=== PATIENT | male | born 1970 | race Caucasian/White ===

== ENCOUNTER 2018-12-03 08:04 | Inpatient (IN) | payer OTHER ==
[2018-12-03] VITALS (56 sets, daily range): BP systolic 65–134; BP diastolic 41–82
[~2018-12-03] VITALS: Ht 177.8 cm; Wt 77.6 kg
[2018-12-03 08:48] LABS: HEMATOCRIT 44.6 % (42.0-52.0); HEMOGLOBIN 13.9 gm/dL (14.0-18.0); MCH 31.2 pg (26.0-34.0); MCHC 31.1 g/dL (28.0-37.0); MCV 100.4 fL (80.0-100.0); MPV 9.3 fl. (7.2-11.1); NUCLEATED RBCS 0 /100WBC; PLATELET COUNT* 114 thou/uL (150-400); RBC 4.45 mil/uL (4.50-6.00); RDW-CV 13.7 % (10.5-14.5); WBC 7.5 thou/uL (4.0-11.0)
[2018-12-03 08:58] LABS: ANION GAP 21 mmol/L (7-16); BUN 13 mg/dL (7-18); CALCIUM 8.7 mg/dL (8.5-10.1); CHLORIDE 102 mmol/L (98-107); CO2 19 mmol/L (21-32); CREATININE 1.4 mg/dL (0.6-1.3); GLUCOSE 461 mg/dL (70-99); INR 1.1; POTASSIUM 3.1 mmol/L (3.5-5.1); SODIUM 142 mmol/L (136-145)
[2018-12-03 09:08] LABS: ALBUMIN 2.7 g/dL (3.4-5.0); ALKALINE PHOSPHATASE 74 U/L (46-116); LIPASE 482 U/L (73-393); MAGNESIUM 2.8 mg/dL (1.8-2.4); NT-PRO BRAIN NAT PEPTIDE 237 pg/mL (<300); SGOT 147 U/L (15-37); SGPT 181 U/L (30-65); TOTAL PROTEIN 5.4 g/dL (6.4-8.2)
[2018-12-03 09:11] LABS: TOTAL BILIRUBIN < 0.1 mg/dL (<0.1-1.0)
[2018-12-03 09:15] LABS: ABSOLUTE EOSINOPHILS 0.2 thou/uL (0.0-0.7); ABSOLUTE LYMPHOCYTES 5.4 thou/uL (0.8-5.3); ABSOLUTE MONOCYTES 0.6 thou/uL (0.0-1.2); ABSOLUTE NEUTROPHILS 1.4 thou/uL (1.6-8.1); PLATELET ESTIMATE ADEQUATE
[2018-12-03 09:38] LABS: BE -20.6 mmol/L (-2 to +3)
[2018-12-03 09:40] LABS: PCO2 52.5 mmHg (35.0-45.0); PO2 49.6 mmHg (75.0-100.0); pH 6.957 (7.340-7.450)
[2018-12-03 10:37] LABS: BE -14.5 mmol/L (-2 to +3); PO2 70.7 mmHg (75.0-100.0)
[2018-12-03 10:40] LABS: PCO2 61.5 mmHg (35.0-45.0); pH 7.049 (7.340-7.450)
[2018-12-03 13:11] LABS: BE -7.4 mmol/L (-2 to +3); PCO2 48.2 mmHg (35.0-45.0)
[2018-12-03 13:14] LABS: PO2 125.2 mmHg (75.0-100.0); pH 7.239 (7.340-7.450)
[2018-12-03 14:28] LABS: HEMATOCRIT 45.9 % (42.0-52.0)
[2018-12-03 15:45] LABS: ABSOLUTE MONOCYTES 0.6 thou/uL (0.0-1.2); ABSOLUTE NEUTROPHILS 14.1 thou/uL (1.6-8.1); BASOPHILS 0.1 %; EOSINOPHILS 0.1 %; HEMATOCRIT 45.5 % (42.0-52.0); LYMPHOCYTES 6.2 %; MCH 30.9 pg (26.0-34.0); MCHC 32.9 g/dL (28.0-37.0); MONOCYTES 3.6 %; MPV 9.6 fl. (7.2-11.1); NUCLEATED RBCS 0 /100WBC; RBC 4.85 mil/uL (4.50-6.00); WBC 15.7 thou/uL (4.0-11.0)
[2018-12-03 15:46] LABS: CK-MB MASS > 900.0 ng/mL (<0.5-3.6)
[2018-12-03 15:47] LABS: PLATELET COUNT* 260 thou/uL (150-400)
[2018-12-03 15:50] LABS: TROPONIN-I LEVEL > 200.00 ng/mL (<0.06)
[2018-12-03 15:58] LABS: ANION GAP 12 mmol/L (7-16); BUN 21 mg/dL (7-18); CALCIUM 7.3 mg/dL (8.5-10.1); CHLORIDE 110 mmol/L (98-107); CO2 25 mmol/L (21-32); CREATININE 1.8 mg/dL (0.6-1.3); GLUCOSE 129 mg/dL (70-99); POTASSIUM 3.3 mmol/L (3.5-5.1); SODIUM 147 mmol/L (136-145)
[2018-12-03 16:31] LABS: CK-MB MASS > 900.0 ng/mL (<0.5-3.6); MAGNESIUM 2.3 mg/dL (1.8-2.4); NT-PRO BRAIN NAT PEPTIDE 558 pg/mL (<300); PHOSPHORUS* 1.7 mg/dL (2.5-4.9)
[2018-12-03 16:39] LABS: INR 1.2; PROTIME 12.4 Seconds (9.20-11.50)
[2018-12-03 16:40] LABS: FIBRINOGEN 194 mg/dL (200-340)
--- NOTE | 2018-12-03 18:15 | EKG ---
[place] [address] ELECTROCARDIOGRAM REPORT Name: ZACH MORTON Room: [address] ADM IN .R.#: [id number] Admission: 12/03/18 Attend Phys: Jani Powers Discharge: Date of : 70 Report #: [id number] THIS REPORT FOR: //name// [facility] Test Date: 2018-12-03 Test Time: 11:01:27 Pat Name: ZACH MORTON Department: Room: [facility] Gender: M Supervisor [employer]: : 1970 Requested By: Juancarlos Alexandre Order Number: [id number] Andi MD: Juancarlos Alexandre Measurements Intervals [place] Rate: 101 P: 55 [place]: 119 QRS: 16 QRSD: 93 T: -54 QT: 391 QTc: 507 Interpretive Statements Sinus tachycardia Atrial premature complex Repol abnrm suggests ischemia, lateral leads Prolonged QT interval No previous ECG available for comparison Electronically Signed On 12-03-2018 18:14:46 CDT by Juancarlos Alexandre [email or web address] <ELECTRONICALLY SIGNED> By: Juancarlos Alexandre MD, [facility] 12/03/18 1814 00 00 Juancarlos Alexandre MD, FACC /EPI
--- NOTE | 2018-12-03 18:22 | EKG ---
[place] [address] ELECTROCARDIOGRAM REPORT Name: ZACH MORTON Room: [address] ADM IN .R.#: [id number] Admission: 12/03/18 Attend Phys: Jani Powers Discharge: Date of : 70 Report #: [id number] THIS REPORT FOR: //name// [facility] ED Test Date: 2018-12-03 Test Time: 08:34:16 Pat Name: ZACH MORTON Department: Room: [facility] Gender: M Eyeglass Lens Grinder: : 1970 Requested By: Ari Soto Order Number: [id number] MD: Juancarlos Alexandre Measurements Intervals [place] Rate: 70 P: AR: QRS: 111 QRSD: 194 T: 105 QT: 534 QTc: 577 Interpretive Statements Wide complex rhythm Inferior ST elevation consistent with acute inferior wall infarct Nonspecific intraventricular conduction delay Abnormal lateral Q waves ST depr, consider ischemia, anterolateral lds No previous ECG available for comparison Electronically Signed On 12-03-2018 18:22:33 CDT by Juancarlos Alexandre [email or web address] <ELECTRONICALLY SIGNED> By: Juancarlos Alexandre MD, FACC 12/03/18 1822 0834 Juancarlos Alexandre MD, [facility] /EPI
[2018-12-03 18:34] LABS: BE -7.2 mmol/L (-2 to +3); PCO2 36.9 mmHg (35.0-45.0); PO2 88.1 mmHg (75.0-100.0); pH 7.312 (7.340-7.450)
[2018-12-03 22:44] LABS: URINE BILIRUBIN NEGATIVE (Negative); URINE BLOOD 3+ (Negative); URINE CLARITY CLOUDY; URINE COLOR BROWN; URINE GLUCOSE-RANDOM TRACE (Negative); URINE KETONES NEGATIVE (Negative); URINE LEUKOCYTES-REFLEX NEGATIVE (Negative); URINE NITRITE-REFLEX NEGATIVE (Negative); URINE PROTEIN 2+ (Negative); URINE SPECIFIC GRAVITY >= 1.030 (1.005-1.030); URINE UROBILINOGEN 0.2 E.U./dl (0.2-1.0)
[2018-12-03 22:57] LABS: URINE RBC >20 Many /HPF (0-2); URINE WBC-REFLEX None Seen /HPF (0-5)
[2018-12-03 22:58] LABS: CRYSTALS None Seen /LPF (None Seen); MUCUS None Seen strn/LPF (None Seen); SQUAMOUS NONE SEEN /LPF (0-3)
[2018-12-03 22:59] LABS: HYALINE CASTS 0-3 Few /LPF (None Seen)
[2018-12-03 23:00] LABS: BACTERIA-REFLEX None Seen /HPF (None Seen)
[2018-12-04] VITALS (44 sets, daily range): BP systolic 93–170; BP diastolic 53–84
[2018-12-04 00:38] LABS: HEMATOCRIT 40.7 % (42.0-52.0); HEMOGLOBIN 13.4 gm/dL (14.0-18.0); MCH 30.9 pg (26.0-34.0); MCHC 33.1 g/dL (28.0-37.0); MCV 93.3 fL (80.0-100.0); MPV 9.6 fl. (7.2-11.1); RBC 4.36 mil/uL (4.50-6.00); RDW-CV 13.2 % (10.5-14.5); WBC 21.7 thou/uL (4.0-11.0)
[2018-12-04 00:53] LABS: INR 1.1; PROTIME 10.9 Seconds (9.20-11.50)
[2018-12-04 00:56] LABS: APTT 25.2 Seconds (25.0-31.3)
[2018-12-04 01:05] LABS: MAGNESIUM 1.7 mg/dL (1.8-2.4); PHOSPHORUS* 4.1 mg/dL (2.5-4.9)
[2018-12-04 01:13] LABS: ALBUMIN 2.6 g/dL (3.4-5.0); ALKALINE PHOSPHATASE 60 U/L (46-116); ANION GAP 16 mmol/L (7-16); BUN 30 mg/dL (7-18); CHLORIDE 110 mmol/L (98-107); CHOLESTEROL 120 mg/dL (<200); CO2 18 mmol/L (21-32); CREATININE 2.6 mg/dL (0.6-1.3); GLUCOSE 120 mg/dL (70-99); HDL CHOLESTEROL 52 mg/dL (>40); LDL CHOLESTEROL 53 mg/dL (<100); SGOT 849 U/L (15-37); SGPT 346 U/L (30-65); SODIUM 144 mmol/L (136-145); TC:HDL 2.3 Ratio (Not establshd); TOTAL BILIRUBIN 0.6 mg/dL (<0.1-1.0); TOTAL PROTEIN 5.2 g/dL (6.4-8.2); TRIGLYCERIDE 77 mg/dL (<150); VLDL 15 mg/dL (<40)
[2018-12-04 01:17] LABS: POTASSIUM 4.3 mmol/L (3.5-5.1)
[2018-12-04 01:20] LABS: SERUM ASSESSMENT Clear
[2018-12-04 01:51] LABS: TROPONIN-I LEVEL > 200.00 ng/mL (<0.06)
[2018-12-04 04:06] LABS: BE -9.8 mmol/L (-2 to +3); PCO2 31.1 mmHg (35.0-45.0); PO2 89.7 mmHg (75.0-100.0); pH 7.307 (7.340-7.450)
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
[2018-12-04 08:28] LABS: ABSOLUTE LYMPHOCYTES 1.9 thou/uL (0.8-5.3); ABSOLUTE NEUTROPHILS 19.1 thou/uL (1.6-8.1); BASOPHILS 0.1 %; HEMATOCRIT 37.3 % (42.0-52.0); HEMOGLOBIN 12.3 gm/dL (14.0-18.0); LYMPHOCYTES 8.5 %; MCH 30.6 pg (26.0-34.0); MCHC 33.1 g/dL (28.0-37.0); MCV 92.6 fL (80.0-100.0); MONOCYTES 4.5 %; MPV 9.8 fl. (7.2-11.1); NUCLEATED RBCS 0 /100WBC; PLATELET COUNT* 193 thou/uL (150-400); POLYS 86.9 %; RBC 4.03 mil/uL (4.50-6.00); RDW-CV 12.8 % (10.5-14.5)
[2018-12-04 08:41] LABS: CALCIUM 7.4 mg/dL (8.5-10.1); CREATININE 3.3 mg/dL (0.6-1.3); MAGNESIUM 2.3 mg/dL (1.8-2.4); PHOSPHORUS* 5.1 mg/dL (2.5-4.9); POTASSIUM 4.7 mmol/L (3.5-5.1)
[2018-12-04 09:02] LABS: APTT 27.4 Seconds (25.0-31.3); PROTIME 10.6 Seconds (9.20-11.50)
[2018-12-04 09:08] LABS: CK-MB MASS > 900.0 ng/mL (<0.5-3.6)
[2018-12-04 09:09] LABS: TROPONIN-I LEVEL > 200.00 ng/mL (<0.06)
--- NOTE | 2018-12-04 11:03 | CON ---
[facility] [address] [place] [address] CONSULTATION Name: ZACH MORTON Room: [address] IN .R.#: [id number] Admission: 12/03/18 Attend Phys: Jani Powers Discharge: Date of : 70 Report #: [id number] THIS REPORT FOR: //name// CC: Michael Mcwilliams DATE OF SERVICE: 12/03/2018 INDICATION: Out of hospital arrest and acute inferior wall ST elevation myocardial infarction. HISTORY OF PRESENT ILLNESS: The patient is a 47-year-old gentleman with no prior documented cardiac issues. The patient apparently awoke from sleep at approximately 2:00 in the morning, at which time he complained of chest discomfort radiating to his arm and had some nausea. The patient went back to sleep. The patient was found to be unresponsive at approximately 7:15 in the morning. EMS was summoned. EMS intubated the patient on scene and treated with 4 rounds of epinephrine. ACLS protocol was undertaken at that time. The patient was brought to the Emergency Room and found to be in a ventricular arrhythmia. ACLS protocol followed and ultimately a pulse and a reasonable blood pressure attained. The patient was taken emergently to the cardiac catheterization lab. Catheterization revealed the left main, LAD and circumflex arteries to be relatively normal. The right coronary artery is totally occluded proximally. The patient underwent drug-eluting stent placement to this area with prompt filling of the distal right coronary artery. The patient continued to have ventricular arrhythmias during initial catheterization requiring 3 separate defibrillations. Post intervention, the patient was then transferred to the Intensive Care Unit where he remains on pressors and code ICE. He is sedated with propofol. PAST MEDICAL HISTORY: Suggests polysubstance abuse and tobacco use. No other past medical history noted. Diabetes mellitus. FAMILY HISTORY: Noncontributory. SOCIAL HISTORY: The patient lives with girlfriend. There is history of alcohol and methamphetamine use. Apparently, a history of diabetes. PHYSICAL EXAMINATION: VITAL SIGNS: Presently, blood pressure is 112/63, pulse is 90 and regular. GENERAL: Intubated, sedated, and on code ICE protocol. HEENT: Head is normocephalic, atraumatic. NECK: Without obvious jugular venous distention. CHEST: Coarse breath sounds bilaterally. CARDIAC: Regular rhythm without murmur. EXTREMITIES: Cool [place] [address] CONSULTATION Name: ZACH MORTON Room: [address]#: [id number] Admission: 12/03/18 Attend Phys: Jani Powers Discharge: Date of : 70 Report #: [id number] SKIN: Dry. LABORATORY DATA: Reviewed. Sodium 147, potassium 3.3, chloride 110, bicarbonate 25, BUN 21, creatinine 1.8, serum glucose 129. Initial troponin was 1.10 and subsequently greater than 200. NT-proBNP 558. White blood cell count 15.7, hemoglobin 15.0, platelet count 260,000. Chest x-ray shows extensive right lung infiltrates and perihilar infiltrates, possibly suggesting edema. Endotracheal and NG tube in good position. EKG on arrival showed acute ST elevation in the inferior leads with widened QRS complex. IMPRESSION AND RECOMMENDATIONS: 1. Acute inferior wall ST elevation myocardial infarction, status post drug-eluting stent placement. The patient is on an Aggrastat drip as there was concern that he would not be able to absorb antiplatelet therapy. We will continue Aggrastat drip overnight and consider transition to antiplatelet therapy per OG tube tomorrow. Continue supportive care at this time. 2. Out of hospital arrest and acute coronary syndrome. The patient was defibrillated multiple times and bolused with amiodarone in the field and in the hospital. At this time, his rhythm remains stable. We will follow. Should he develop further ventricular arrhythmias, may consider amiodarone drip. 3. Probable acute systolic heart failure. The patient is intubated. Saturations are stable. Blood pressure is stable. We will follow clinically at this point in time. I do not believe that he would tolerate diuresis. 4. Diabetes per hospitalist. At this point in time, the patient remains critically ill with guarded prognosis. The patient had a prolonged downtime in the field and in the Emergency Room. Neurology is following regarding the patient's neurologic status. <ELECTRONICALLY SIGNED> By: Juancarlos Alexandre MD, FACC 12/04/18 1103 1753 1856Juancarlos Alexandre MD, FACC /nt
[2018-12-04 17:28] LABS: BE -8.7 mmol/L (-2 to +3); PCO2 25.3 mmHg (35.0-45.0); pH 7.383 (7.340-7.450)
[2018-12-04 17:30] LABS: PO2 133.8 mmHg (75.0-100.0)
[2018-12-04 21:08] LABS: BE -6.1 mmol/L (-2 to +3); PCO2 VENOUS 32.6 mmHg (41.0-51.0); PO2 VENOUS 138.2 mmHg (35.0-45.0)
[2018-12-04 23:05] LABS: HEPATITIS B SURFACE AG Negative (Negative)
[2018-12-05] VITALS (34 sets, daily range): BP systolic 117–152; BP diastolic 69–89
[2018-12-05 04:56] LABS: HEMATOCRIT 27.4 % (42.0-52.0); MCH 31.6 pg (26.0-34.0); MCHC 34.5 g/dL (28.0-37.0); MCV 91.6 fL (80.0-100.0); WBC 15.6 thou/uL (4.0-11.0)
[2018-12-05 04:58] LABS: HEMOGLOBIN 9.5 gm/dL (14.0-18.0)
[2018-12-05 05:02] LABS: BE -6.3 mmol/L (-2 to +3); PCO2 25.4 mmHg (35.0-45.0); pH 7.433 (7.340-7.450)
[2018-12-05 05:04] LABS: PO2 131.7 mmHg (75.0-100.0)
[2018-12-05 05:17] LABS: ALBUMIN 2.1 g/dL (3.4-5.0); CALCIUM 7.1 mg/dL (8.5-10.1); CREATININE 5.2 mg/dL (0.6-1.3); MAGNESIUM 2.1 mg/dL (1.8-2.4); PHOSPHORUS* 4.5 mg/dL (2.5-4.9)
[2018-12-05 05:31] LABS: CK-MB MASS 397.6 ng/mL (<0.5-3.6)
[2018-12-05 06:24] LABS: TROPONIN-I LEVEL 131.95 ng/mL (<0.06)
[2018-12-05 07:41] LABS: CK-MB MASS > 900.0 ng/mL (<0.5-3.6)
[2018-12-05 08:02] LABS: HEMOGLOBIN 9.6 gm/dL (14.0-18.0)
--- NOTE | 2018-12-05 12:41 | CARD ---
[facility] [address] [place] [address] CARDIAC CATH REPORT Name: ZACH MORTON Room: 003-P ADM IN .R.#: [id number] Admission: 12/03/18 Attend Phys: Jani Powers Discharge: Date of : 70 Report #: [id number] THIS REPORT FOR: //name// APPROVED REPORT Study performed: 12/03/2018 08:30:41 Patient Details Patient Status: ED Room #: The patient is a 47 year-old male Event Personnel Gerry Verde Psychological Operations, Juancarlos Alexandre Yoke Presser, Alex León Scrub, Mel Hoff RTR Monitor, Zulay Avilez RN Protective Service Specialist, Mariaelena Elam Protective Service Specialist Procedures Performed Art Access - R femoral artery* Linwood Access - R femoral vein Coronary Angiography Only CORANG JOSIE Place w/wo Plasty Single RCA Indication STEMI Admission/Lab Medications/Medications given during procedure Platelet Aff. Inhib., Heparin Unfract., Aggrastat IV 8 mcg per min, Aggrastat IV 15 mcg per [place], [place] [address] units Procedure Narrative The patient was brought emergently to the Cardiac Catheterization Laboratory and was prepped and draped in a sterile manner. The right femoral was infiltrated with 1% Lidocaine subcutaneous anesthesia. A [place] 6 FR sheath was inserted into the right femoral artery. Coronary angiography was performed using coronary diagnostic catheters. The right coronary system was accessed and visualized with a JR4 6fr catheter. The left coronary system was accessed and visualized with a JL4 6fr catheter. The patient had a cardiac rhythm of ventricular fibrillation three times. The patient was shocked with 200J x 1. the subsequesnt shocks were 360J each. Patient was given Amiodarone 150mg bolus x 2 and 2 amps of Sodium Bicarbonate to stabilize the patient hemodynamically. The arterial and venous sheath were sutured in place. Intraoperative Conscious Sedation No [place] [address] CARDIAC CATH REPORT Name: ZACH MORTON Room: [address] IN [facility]#: [id number] Admission: 12/03/18 Attend Phys: Jani Powers Discharge: Date of : 70 Report #: [id number] Procedure start time 9:16, stop time 9:46. Fluoro Time: 7.5 minutes Dose: DAP 38965 cGycm2 647 mGy Contrast Type and Amount: Visipaque 140 ml Coronary Angiography The patient's coronary anatomy is right dominant. Diagnostic Cath Left Main Normal LAD Minimally plaqued proximally. The mid and distal vessel appeared normal. Diagonal 1 Justin branch with fairly proximal takeoff. The vessel appears normal. Circumflex Normal in the proximal mid and distal portion. OM1 Large with fairly proximal takeoff. The vessel is normal. OM2 Moderate size caliber branch vessel that is normal. Right Coronary Totally occluded proximally. Left Ventriculography Left Ventriculography was not performed. Hemodynamics NIBP PRE PROCEDURE 9:18AM 148/110. NIBP POST PROCEDURE 9:55 AM 184/79. PCI Technique Lesion Anticoagulation was achieved with Heparin. [place] [address] units. Percutaneous coronary intervention was performed on the mid right coronary artery. The lesion stenosis prior to intervention was 100% with MAYNOR 0 flow. A 6F JR 4.0 Guide Catheter was used to engage the ostium. A IG: BMW 190cm Interventional Guidewire was used to cross the lesion. BALLOON DILATION A Balloon catheter Trek RX 2.25 X 12 was inserted and inflated up to 16.00atm for 20seconds. Additional Inflation: 17.00atm for 16seconds. STENT DEPLOYMENT A drug-eluting stent ORSIRO RX 3.0 X 26 was inserted and inflated up to 12atm for 12seconds. POST STENT DEPLOYMENT [place] [address] CARDIAC CATH REPORT Name: PRAVEENZACH Preston Room: [address] IN [facility]#: [id number] Admission: 12/03/18 Attend Phys: Jani Powers Discharge: Date of : 70 Report #: [id number] A Balloon catheter NC Trek RX 3.25 X 12 was inserted and inflated up to 14.00atm for 11seconds. Additional Inflation: 18.00atm for 10seconds. Additional Inflation: 18.00atm for 8seconds. Final angiography reveals 10 % stenosis with MAYNOR 3 flow. Conclusion 1. Acute inferior wall ST elevation myocardial infarction with acute total occlusion of the mid right coronary artery. 2. Minimal plaquing in the LAD circumflex territories. 3. Successful percutaneous coronary intervention with deployment of a drug-eluting stent at site of 100% mid right coronary occlusion with 10% residual narrowing and MAYNOR-3 flow to the distal vessel with no residual thrombus. Recommendations 1. Percutaneous coronary intervention to the right coronary artery. 2. Aggressive medical management and risk factor modification. 3. Aggrastat infusion post-procedurally Diagnostic Cath Approved by: Juancarlos Alexandre MD Date/Time: 12/04/2018 11:41:12 <ELECTRONICALLY SIGNED> By: Gerry Verde MD, [facility] 12/05/18 1241 1241 1241Gerry Verde MD, FACC /INF
[2018-12-05 16:13] LABS: HEMATOCRIT 24.8 % (42.0-52.0); HEMOGLOBIN 8.5 gm/dL (14.0-18.0)
[2018-12-05 16:23] LABS: ALBUMIN 2.1 g/dL (3.4-5.0); CALCIUM 7.9 mg/dL (8.5-10.1); CREATININE 5.8 mg/dL (0.6-1.3); MAGNESIUM 2.1 mg/dL (1.8-2.4); PHOSPHORUS* 5.1 mg/dL (2.5-4.9)
[2018-12-05 19:46] LABS: HEMATOCRIT 25.2 % (42.0-52.0); HEMOGLOBIN 8.7 gm/dL (14.0-18.0)
[2018-12-06] VITALS (40 sets, daily range): BP systolic 124–168; BP diastolic 63–98
[2018-12-06 05:30] LABS: HEMATOCRIT 22.5 % (42.0-52.0); HEMOGLOBIN 7.8 gm/dL (14.0-18.0); MCH 31.5 pg (26.0-34.0); MCHC 34.5 g/dL (28.0-37.0); MCV 91.3 fL (80.0-100.0); MPV 9.7 fl. (7.2-11.1); RBC 2.46 mil/uL (4.50-6.00); RDW-CV 13.1 % (10.5-14.5); WBC 11.6 thou/uL (4.0-11.0)
[2018-12-06 05:55] LABS: ALBUMIN 2.2 g/dL (3.4-5.0); CALCIUM 7.8 mg/dL (8.5-10.1); CREATININE 5.6 mg/dL (0.6-1.3); MAGNESIUM 2.3 mg/dL (1.8-2.4); POTASSIUM 4.7 mmol/L (3.5-5.1)
[2018-12-06 06:13] LABS: BE -2.8 mmol/L (-2 to +3); PCO2 32.7 mmHg (35.0-45.0); pH 7.428 (7.340-7.450)
[2018-12-06 06:18] LABS: PO2 152.4 mmHg (75.0-100.0)
[2018-12-06 08:40] LABS: ALBUMIN 2.2 g/dL (3.4-5.0); DIRECT BILIRUBIN 0.2 mg/dL (<0.1-0.3); TOTAL BILIRUBIN 0.6 mg/dL (<0.1-1.0); TOTAL PROTEIN 4.6 g/dL (6.4-8.2)
[2018-12-06 14:35] LABS: BE -1.4 mmol/L (-2 to +3); PCO2 32.8 mmHg (35.0-45.0); PO2 119.9 mmHg (75.0-100.0); pH 7.448 (7.340-7.450)
--- NOTE | 2018-12-06 16:44 | 2DMMODE ---
[place] [address] 2 D/M-MODE ECHOCARDIOGRAM Name: ZACH MORTON Room: 003-P ADM IN [facility]#: [id number] Admission: 12/03/18 Attend Phys: Gabriele Mcwilliams Discharge: Date of : 70 Date of Service: 12/06/18 1644 Report #: [id number] THIS REPORT FOR: //name// APPROVED REPORT Study performed: 12/06/2018 15:06:23 EXAM: Comprehensive 2D, Doppler, and color-flow Echocardiogram Patient Location: In-Patient Room #: 003 Status: routine BSA: 2.12 HR: 96 bpm BP: 148/79 mmHg Rhythm: NSR Other Information Study Quality: Adequate Indications Acute CT 2D Dimensions IVSd: 7.84 (7-11mm) LVOT Diam: 19.44 (18-24mm) LVDd: 54.62 mm PWd: 7.51 (7-11mm) LVDs: 34.57 (25-40mm) Aortic Root: 34.99 mm Aortic Valve AoV Peak Song.: 1.30 m/s AO Peak Gr.: 6.78 mmHg LVOT Max P.75 mmHg AO Mean Gr.: 4.26 mmHg LVOT Mean P.05 mmHg LVOT Max V: 0.97 m/s AO V2 VTI: 20.51 cm LVOT Mean V: 0.66 m/s FRANCY (VTI): 2.51 cm2 LVOT V1 VTI: 17.33 cm Mitral Valve E/A Ratio: 0.87 MV Decel. Time: 180.26 ms MV E Max Song.: 0.93 m/s MV PHT: 52.28 ms MVA (PHT): 4.21 [place] [address] 2 D/M-MODE ECHOCARDIOGRAM Name: ZACH MORTON Room: [address] IN ..#: [id number] Admission: 12/03/18 Attend Phys: Gabriele Mcwilliams Discharge: Date of : 70 Date of Service: 12/06/18 1644 Report #: [id number] E/Lateral E': 6.20 E/Medial E': 7.75 Medial E' Song.: 0.12 m/s Lateral E' Song.: 0.15 m/s Pulmonary Valve PV Peak Song.: 1.14 m/s PV Peak Gr.: 5.22 mmHg Left Ventricle The left ventricle is normal size. There is normal LV segmental wall motion. There is normal left ventricular wall thickness. Left ventricular systolic function is normal. The left ventricular ejection fraction is within the normal range. LVEF is 55-60%. Grade I - abnormal relaxation pattern. Right Ventricle The right ventricle is normal size. The right ventricular systolic function is normal. Atria The left atrium size is normal. The right atrium size is normal. Aortic Valve The aortic valve is not well visualized. No aortic regurgitation is present. There is no aortic valvular stenosis. Mitral Valve The mitral valve is normal in structure. Mild mitral regurgitation. No evidence of mitral valve stenosis. Tricuspid Valve The tricuspid valve is normal in structure. Unable to assess PA pressure. Trace tricuspid regurgitation. Pulmonic Valve Pulmonic valve is not well visualized.. There is no pulmonic valvular regurgitation. Great Vessels The aortic root is normal in size. IVC is normal in size and collapses >50% with inspiration. Pericardium There is no pericardial effusion. <Conclusion> [place] [address] 2 D/M-MODE ECHOCARDIOGRAM Name: ZACH MORTON Room: [address] IN .R.#: [id number] Admission: 12/03/18 Attend Phys: Gabriele Mcwilliams Discharge: Date of : 70 Date of Service: 12/06/181643 Report #: [id number] Left ventricular systolic function is normal. The left ventricular ejection fraction is within the normal range. <ELECTRONICALLY SIGNED> By: Eliseo Vega MD, [facility] 12/06/18 1644 43 43 Eliseo Veag MD, FACC /INF
[2018-12-07] VITALS (80 sets, daily range): BP systolic 115–159; BP diastolic 61–98
[2018-12-07 05:18] LABS: HEMATOCRIT 24.9 % (42.0-52.0); HEMOGLOBIN 8.6 gm/dL (14.0-18.0); MCH 31.2 pg (26.0-34.0); MCHC 34.5 g/dL (28.0-37.0); MCV 90.4 fL (80.0-100.0); MPV 9.5 fl. (7.2-11.1); RBC 2.75 mil/uL (4.50-6.00); RDW-CV 13.9 % (10.5-14.5); WBC 9.2 thou/uL (4.0-11.0)
[2018-12-07 05:37] LABS: PHOSPHORUS* 5.7 mg/dL (2.5-4.9)
[2018-12-07 05:45] LABS: ALBUMIN 2.4 g/dL (3.4-5.0); CALCIUM 8.1 mg/dL (8.5-10.1); CREATININE 5.1 mg/dL (0.6-1.3); MAGNESIUM 2.6 mg/dL (1.8-2.4); POTASSIUM 4.6 mmol/L (3.5-5.1); TOTAL BILIRUBIN 0.7 mg/dL (<0.1-1.0); TOTAL PROTEIN 5.6 g/dL (6.4-8.2)
[2018-12-07 05:55] LABS: BE 2.2 mmol/L (-2 to +3); PCO2 35.5 mmHg (35.0-45.0); pH 7.477 (7.340-7.450)
[2018-12-07 05:59] LABS: PO2 154.7 mmHg (75.0-100.0)
[2018-12-07 15:39] LABS: PCO2 35.5 mmHg (35.0-45.0); PO2 100.3 mmHg (75.0-100.0); pH 7.431 (7.340-7.450)
[2018-12-08] VITALS (55 sets, daily range): BP systolic 117–151; BP diastolic 64–89
[2018-12-08 08:20] LABS: HEMATOCRIT 21.7 % (42.0-52.0); HEMOGLOBIN 7.5 gm/dL (14.0-18.0); MCH 31.5 pg (26.0-34.0); MCHC 34.3 g/dL (28.0-37.0); MCV 91.9 fL (80.0-100.0); MPV 9.3 fl. (7.2-11.1); RBC 2.37 mil/uL (4.50-6.00); RDW-CV 13.3 % (10.5-14.5)
[2018-12-08 08:23] LABS: CALCIUM 7.6 mg/dL (8.5-10.1); CREATININE 7.6 mg/dL (0.6-1.3); POTASSIUM 4.7 mmol/L (3.5-5.1)
[2018-12-08 09:09] LABS: BE -1.7 mmol/L (-2 to +3); PCO2 35.6 mmHg (35.0-45.0); PO2 105.3 mmHg (75.0-100.0); pH 7.417 (7.340-7.450)
[2018-12-09] VITALS (36 sets, daily range): BP systolic 107–155; BP diastolic 73–97
[2018-12-09 03:37] LABS: HEMATOCRIT 26.3 % (42.0-52.0); HEMOGLOBIN 8.8 gm/dL (14.0-18.0); MCH 30.9 pg (26.0-34.0); MCHC 33.6 g/dL (28.0-37.0); MCV 92.1 fL (80.0-100.0); MPV 9.3 fl. (7.2-11.1); RBC 2.86 mil/uL (4.50-6.00); RDW-CV 13.9 % (10.5-14.5); WBC 10.3 thou/uL (4.0-11.0)
[2018-12-09 04:08] LABS: ALBUMIN 2.4 g/dL (3.4-5.0); CALCIUM 8.1 mg/dL (8.5-10.1); POTASSIUM 4.8 mmol/L (3.5-5.1); TOTAL BILIRUBIN 0.7 mg/dL (<0.1-1.0); TOTAL PROTEIN 5.9 g/dL (6.4-8.2)
[2018-12-09 04:11] LABS: CREATININE 5.8 mg/dL (0.6-1.3)
[2018-12-09 08:45] LABS: BE 1.4 mmol/L (-2 to +3); PCO2 37.7 mmHg (35.0-45.0); PO2 85.2 mmHg (75.0-100.0); pH 7.447 (7.340-7.450)
[2018-12-10] VITALS (39 sets, daily range): BP systolic 95–159; BP diastolic 59–114
[2018-12-10 03:19] LABS: ABSOLUTE EOSINOPHILS 0.1 thou/uL (0.0-0.7); ABSOLUTE LYMPHOCYTES 0.6 thou/uL (0.8-5.3); ABSOLUTE MONOCYTES 0.8 thou/uL (0.0-1.2); BASOPHILS 0.2 %; EOSINOPHILS 0.9 %; HEMATOCRIT 24.1 % (42.0-52.0); HEMOGLOBIN 8.1 gm/dL (14.0-18.0); LYMPHOCYTES 8.4 %; MCH 30.8 pg (26.0-34.0); MCHC 33.7 g/dL (28.0-37.0); MCV 91.4 fL (80.0-100.0); MONOCYTES 10.3 %; MPV 8.8 fl. (7.2-11.1); NUCLEATED RBCS 0 /100WBC; PLATELET COUNT* 140 thou/uL (150-400); POLYS 80.2 %; RBC 2.64 mil/uL (4.50-6.00); RDW-CV 13.6 % (10.5-14.5); WBC 7.5 thou/uL (4.0-11.0)
[2018-12-10 03:30] LABS: ALBUMIN 2.2 g/dL (3.4-5.0); CALCIUM 7.6 mg/dL (8.5-10.1); POTASSIUM 5.1 mmol/L (3.5-5.1); TOTAL BILIRUBIN 0.5 mg/dL (<0.1-1.0); TOTAL PROTEIN 5.5 g/dL (6.4-8.2)
[2018-12-10 03:31] LABS: CREATININE 7.3 mg/dL (0.6-1.3)
--- NOTE | 2018-12-10 14:24 | EEG ---
[address] [address] EEG STUDY REPORT Name: ZACH MORTON Room: 003-[facility] IN M.R.#: [id number] Admission: 12/03/18 Attend Phys: Jani Powers Discharge: Date of : 70 Report #: [id number] THIS REPORT FOR: //name// CC: Michael Mcwilliams DATE OF SERVICE: 12/09/2018 This patient's EEG was done for comparison with the last EEG. EEG was done by placing the electrode by standard 10-20 system of electrode placement. Both referential and sequential montages were used for recording. Background activity is about 6-7 Hz and 30 microvolt. It is a symmetrical activity, but it is intermixed with slowing on both sides. Photic stimulation is unremarkable. Throughout the record, no active epileptiform activity was noted. IMPRESSION: This patient's EEG is intermixed with theta range slowing on both sides. That is a nonspecific abnormality, which can occur with encephalopathy, effect of psychotropic medication, dementia, etc. Clinical correlation is recommended. <ELECTRONICALLY SIGNED> By: Lino Cisse MD 12/10/18 1424 1656 1811Parjeffry Cisse MD /nt
--- NOTE | 2018-12-10 14:24 | EEG ---
[address] [address] EEG STUDY REPORT Name: ZACH MORTON Room: [address] IN M.R.#: [id number] Admission: 12/03/18 Attend Phys: Jani Powers Discharge: Date of : 70 Report #: [id number] THIS REPORT FOR: //name// CC: Michael Mcwilliams DATE OF SERVICE: 12/06/2018 This patient's EEG was done by placing the electrode by standard 10-20 system of electrode placement. Both referential and sequential montages were used for recording. Background activity in this patient's EEG is about 8 Hz and 30 microvolt. Photic stimulation is unremarkable. The patient is sedated on propofol. IMPRESSION: This is an abnormal EEG because it is intermixed with theta range slowing on both sides. However, well-defined cortical activity is present on both sides. Thank you very much for this referral. <ELECTRONICALLY SIGNED> By: Lino Cisse MD 12/10/18 1424 1429 1444Pmick Cisse MD /nt
[2018-12-11] VITALS (33 sets, daily range): BP systolic 108–142; BP diastolic 66–92
[2018-12-11 05:21] LABS: HEMATOCRIT 23.1 % (42.0-52.0); HEMOGLOBIN 7.9 gm/dL (14.0-18.0); MCH 31.4 pg (26.0-34.0); MCHC 34.3 g/dL (28.0-37.0); MCV 91.4 fL (80.0-100.0); MPV 9.3 fl. (7.2-11.1); RBC 2.53 mil/uL (4.50-6.00); RDW-CV 13.7 % (10.5-14.5); WBC 7.5 thou/uL (4.0-11.0)
[2018-12-11 06:13] LABS: POTASSIUM 4.7 mmol/L (3.5-5.1)
[2018-12-11 06:37] LABS: ALBUMIN 2.3 g/dL (3.4-5.0); CALCIUM 7.6 mg/dL (8.5-10.1); TOTAL BILIRUBIN 0.5 mg/dL (<0.1-1.0); TOTAL PROTEIN 5.8 g/dL (6.4-8.2)
[2018-12-11 06:38] LABS: CREATININE 5.7 mg/dL (0.6-1.3)
[2018-12-12] VITALS (50 sets, daily range): BP systolic 112–145; BP diastolic 66–97
[2018-12-12 03:16] LABS: HEMATOCRIT 23.1 % (42.0-52.0); HEMOGLOBIN 7.7 gm/dL (14.0-18.0); MCH 30.9 pg (26.0-34.0); MCHC 33.5 g/dL (28.0-37.0); MCV 92.2 fL (80.0-100.0); MPV 9.3 fl. (7.2-11.1); RBC 2.51 mil/uL (4.50-6.00); RDW-CV 13.4 % (10.5-14.5); WBC 9.5 thou/uL (4.0-11.0)
[2018-12-12 03:24] LABS: ALBUMIN 2.3 g/dL (3.4-5.0); CALCIUM 7.6 mg/dL (8.5-10.1); POTASSIUM 4.8 mmol/L (3.5-5.1); TOTAL BILIRUBIN 0.3 mg/dL (<0.1-1.0); TOTAL PROTEIN 5.8 g/dL (6.4-8.2)
[2018-12-12 03:27] LABS: CREATININE 7.3 mg/dL (0.6-1.3)
[2018-12-12 08:00] LABS: URINE BILIRUBIN NEGATIVE (Negative); URINE BLOOD 2+ (Negative); URINE CLARITY CLEAR; URINE COLOR YELLOW; URINE GLUCOSE-RANDOM NEGATIVE (Negative); URINE KETONES NEGATIVE (Negative); URINE LEUKOCYTES-REFLEX NEGATIVE (Negative); URINE NITRITE-REFLEX NEGATIVE (Negative); URINE PROTEIN 1+ (Negative); URINE UROBILINOGEN 0.2 E.U./dl (0.2-1.0)
[2018-12-12 08:07] LABS: SQUAMOUS 0-3 Few /LPF (0-3)
[2018-12-12 08:08] LABS: URINE RBC 0-2 Rare /HPF (0-2); URINE WBC-REFLEX 0-5 Rare /HPF (0-5)
[2018-12-12 08:11] LABS: CRYSTALS None Seen /LPF (None Seen); FINE GRANULAR CASTS 0-3 Few /LPF (None Seen); HYALINE CASTS 0-3 Few /LPF (None Seen); MUCUS 0-3 Light strn/LPF (None Seen)
[2018-12-12 08:25] LABS: ABSOLUTE EOSINOPHILS 0.3 thou/uL (0.0-0.7); ABSOLUTE NEUTROPHILS 7.8 thou/uL (1.6-8.1); BASOPHILS 0.3 %; EOSINOPHILS 2.7 %; HEMOGLOBIN 7.4 gm/dL (14.0-18.0); LYMPHOCYTES 9.8 %; MCH 30.8 pg (26.0-34.0); MCHC 33.4 g/dL (28.0-37.0); MCV 92.2 fL (80.0-100.0); MONOCYTES 9.5 %; MPV 9.2 fl. (7.2-11.1); NUCLEATED RBCS 0 /100WBC; PLATELET COUNT* 205 thou/uL (150-400); POLYS 77.7 %; RBC 2.39 mil/uL (4.50-6.00); RDW-CV 13.3 % (10.5-14.5); WBC 10.1 thou/uL (4.0-11.0)
[2018-12-12 10:33] LABS: BE -1.9 mmol/L (-2 to +3); PCO2 36.2 mmHg (35.0-45.0); PO2 117.3 mmHg (75.0-100.0); pH 7.409 (7.340-7.450)
[2018-12-12 18:22] LABS: HEMATOCRIT 23.8 % (42.0-52.0); HEMOGLOBIN 8.1 gm/dL (14.0-18.0)
[2018-12-13] VITALS (55 sets, daily range): BP systolic 119–159; BP diastolic 49–95
[2018-12-13 03:31] LABS: MCH 30.6 pg (26.0-34.0); MCHC 33.2 g/dL (28.0-37.0); MCV 92.2 fL (80.0-100.0); MPV 9.4 fl. (7.2-11.1); RBC 2.6 mil/uL (4.50-6.00); RDW-CV 13.6 % (10.5-14.5); WBC 12.1 thou/uL (4.0-11.0)
[2018-12-13 03:53] LABS: ALBUMIN 2.4 g/dL (3.4-5.0); CALCIUM 7.9 mg/dL (8.5-10.1); MAGNESIUM 2.7 mg/dL (1.8-2.4); POTASSIUM 4.6 mmol/L (3.5-5.1); TOTAL BILIRUBIN 0.4 mg/dL (<0.1-1.0); TOTAL PROTEIN 5.9 g/dL (6.4-8.2)
[2018-12-13 03:55] LABS: CREATININE 8.3 mg/dL (0.6-1.3)
[2018-12-13 09:38] LABS: INFLUENZA A ANTIGEN Negative (Negative); INFLUENZA B ANTIGEN Negative (Negative)
--- NOTE | 2018-12-13 12:09 | EKG ---
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[facility] : 1970 Requested By: Petra Downing Order Number: [id number] Andi MD: Gerry Verde Measurements Intervals [place] Rate: 95 P: 46 MD: 124 QRS: -12 QRSD: 87 T: -29 QT: 328 QTc: 413 Interpretive Statements Sinus rhythm Inferior infarct, age indeterminate Compared to ECG 12/03/2018 11:01:27 Myocardial infarct finding now present Sinus tachycardia no longer present Atrial premature complex(es) no longer present Early repolarization no longer present Possible ischemia no longer present Prolonged QT interval no longer present Electronically Signed On 12-13-2018 12:08:43 MASH TUB COOKER by Gerry Verde [email or web address] <ELECTRONICALLY SIGNED> By: Gerry Verde MD, FAC 12/13/18 1208 0935 0935 Gerry Verde MD, FAC /EPI
[2018-12-13 14:00] LABS: BE 3.4 mmol/L (-2 to +3); PCO2 35.8 mmHg (35.0-45.0); PO2 98.5 mmHg (75.0-100.0); pH 7.492 (7.340-7.450)
[2018-12-14] VITALS (15 sets, daily range): BP systolic 128–158; BP diastolic 75–123
[2018-12-14 05:31] LABS: HEMOGLOBIN 8.7 gm/dL (14.0-18.0); MCH 30.8 pg (26.0-34.0); MCHC 33.5 g/dL (28.0-37.0); MCV 91.9 fL (80.0-100.0); MPV 9.3 fl. (7.2-11.1); RBC 2.83 mil/uL (4.50-6.00); RDW-CV 13.5 % (10.5-14.5); WBC 11.4 thou/uL (4.0-11.0)
[2018-12-14 05:49] LABS: ALBUMIN 2.6 g/dL (3.4-5.0); CALCIUM 8.1 mg/dL (8.5-10.1); POTASSIUM 3.8 mmol/L (3.5-5.1); TOTAL BILIRUBIN 0.7 mg/dL (<0.1-1.0); TOTAL PROTEIN 6.2 g/dL (6.4-8.2)
[2018-12-14 05:51] LABS: CREATININE 4.8 mg/dL (0.6-1.3)
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
[2018-12-15] VITALS (23 sets, daily range): BP systolic 124–159; BP diastolic 61–91
[2018-12-15 05:14] LABS: HEMOGLOBIN 8.5 gm/dL (14.0-18.0); MCH 31.2 pg (26.0-34.0); MCV 91.8 fL (80.0-100.0); MPV 9.4 fl. (7.2-11.1); RBC 2.72 mil/uL (4.50-6.00); RDW-CV 13.1 % (10.5-14.5); WBC 9.5 thou/uL (4.0-11.0)
[2018-12-15 05:30] LABS: CREATININE 5.2 mg/dL (0.6-1.3); POTASSIUM 3.2 mmol/L (3.5-5.1)
[2018-12-16] VITALS (18 sets, daily range): BP systolic 125–165; BP diastolic 54–104
[2018-12-16 04:29] LABS: HEMATOCRIT 24.1 % (42.0-52.0); HEMOGLOBIN 7.9 gm/dL (14.0-18.0); MCH 30.1 pg (26.0-34.0); MCHC 32.7 g/dL (28.0-37.0); MPV 9.3 fl. (7.2-11.1); RBC 2.62 mil/uL (4.50-6.00); WBC 8.5 thou/uL (4.0-11.0)
[2018-12-16 04:40] LABS: CALCIUM 7.8 mg/dL (8.5-10.1); CREATININE 4.9 mg/dL (0.6-1.3); MAGNESIUM 1.8 mg/dL (1.8-2.4); PHOSPHORUS* 5.1 mg/dL (2.5-4.9); POTASSIUM 3.3 mmol/L (3.5-5.1)
[2018-12-17] VITALS (15 sets, daily range): BP systolic 146–180; BP diastolic 81–131
[2018-12-17 05:35] LABS: ALBUMIN 2.5 g/dL (3.4-5.0); CALCIUM 8.5 mg/dL (8.5-10.1); CREATININE 4.5 mg/dL (0.6-1.3); POTASSIUM 3.2 mmol/L (3.5-5.1); TOTAL BILIRUBIN 0.6 mg/dL (<0.1-1.0); TOTAL PROTEIN 6.4 g/dL (6.4-8.2)
[2018-12-17 15:57] LABS: CALCIUM 8.3 mg/dL (8.5-10.1); CREATININE 4.1 mg/dL (0.6-1.3); MAGNESIUM 1.8 mg/dL (1.8-2.4); POTASSIUM 3.7 mmol/L (3.5-5.1)
[2018-12-18] VITALS: BP 157/99
[2018-12-18 04:00] VITALS: BP 161/94
[2018-12-18 08:00] VITALS: BP 139/88
[2018-12-18 10:35] LABS: ABSOLUTE BASOPHILS 0.1 thou/uL (0.0-0.2); ABSOLUTE EOSINOPHILS 0.2 thou/uL (0.0-0.7); ABSOLUTE LYMPHOCYTES 1.5 thou/uL (0.8-5.3); ABSOLUTE MONOCYTES 0.7 thou/uL (0.0-1.2); ABSOLUTE NEUTROPHILS 5.8 thou/uL (1.6-8.1); BASOPHILS 0.7 %; EOSINOPHILS 2.2 %; HEMATOCRIT 25.8 % (42.0-52.0); HEMOGLOBIN 8.6 gm/dL (14.0-18.0); MCH 31.1 pg (26.0-34.0); MCHC 33.5 g/dL (28.0-37.0); MCV 92.6 fL (80.0-100.0); MONOCYTES 8.9 %; MPV 9.4 fl. (7.2-11.1); NUCLEATED RBCS 0 /100WBC; PLATELET COUNT* 358 thou/uL (150-400); POLYS 70.2 %; RBC 2.78 mil/uL (4.50-6.00); RDW-CV 13.2 % (10.5-14.5); WBC 8.2 thou/uL (4.0-11.0)
[2018-12-18 10:38] LABS: CALCIUM 8.2 mg/dL (8.5-10.1); CREATININE 3.9 mg/dL (0.6-1.3); POTASSIUM 3.3 mmol/L (3.5-5.1)
[2018-12-18 12:00] VITALS: BP 151/91
[2018-12-18 14:41] LABS: CALCIUM 8.1 mg/dL (8.5-10.1); CREATININE 3.7 mg/dL (0.6-1.3); POTASSIUM 3.1 mmol/L (3.5-5.1)
[2018-12-18 16:00] VITALS: BP 146/94
[2018-12-18 20:00] VITALS: BP 163/106
[2018-12-19 00:07] VITALS: BP 153/92
[2018-12-19 03:45] LABS: HEMATOCRIT 25.6 % (42.0-52.0); HEMOGLOBIN 8.5 gm/dL (14.0-18.0); MCH 30.9 pg (26.0-34.0); MCHC 33.3 g/dL (28.0-37.0); MCV 92.6 fL (80.0-100.0); MPV 8.9 fl. (7.2-11.1); RBC 2.77 mil/uL (4.50-6.00); RDW-CV 13.4 % (10.5-14.5); WBC 8.6 thou/uL (4.0-11.0)
[2018-12-19 03:53] LABS: CALCIUM 8.4 mg/dL (8.5-10.1); CREATININE 3.4 mg/dL (0.6-1.3); MAGNESIUM 1.4 mg/dL (1.8-2.4); PHOSPHORUS* 3.8 mg/dL (2.5-4.9); POTASSIUM 3.3 mmol/L (3.5-5.1)
[2018-12-19 03:54] LABS: ALBUMIN 2.6 g/dL (3.4-5.0); CALCIUM 8.2 mg/dL (8.5-10.1); CREATININE 3.3 mg/dL (0.6-1.3); PHOSPHORUS* 3.9 mg/dL (2.5-4.9); POTASSIUM 3.4 mmol/L (3.5-5.1)
[2018-12-19 04:06] VITALS: BP 156/96
[2018-12-19 08:00] VITALS: BP 150/95
[2018-12-19 12:00] VITALS: BP 154/96
[2018-12-19 16:00] VITALS: BP 155/104
[2018-12-19 20:00] VITALS: BP 153/102
[2018-12-20] VITALS: BP 160/100
[2018-12-20 04:00] VITALS: BP 161/102
[2018-12-20 05:16] LABS: CALCIUM 8.4 mg/dL (8.5-10.1); POTASSIUM 3.6 mmol/L (3.5-5.1)
[2018-12-20 05:42] LABS: ALBUMIN 2.8 g/dL (3.4-5.0); CALCIUM 8.7 mg/dL (8.5-10.1); CREATININE 2.9 mg/dL (0.6-1.3); MAGNESIUM 1.8 mg/dL (1.8-2.4); POTASSIUM 3.9 mmol/L (3.5-5.1)
[2018-12-20 08:00] VITALS: BP 151/98
[2018-12-20 11:44] VITALS: BP 156/95
[2018-12-20 16:00] VITALS: BP 143/87
[2018-12-20 20:00] VITALS: BP 132/81
[2018-12-21 01:00] VITALS: BP 129/92
[2018-12-21 05:01] VITALS: BP 141/94
[2018-12-21 05:19] LABS: HEMOGLOBIN 9.1 gm/dL (14.0-18.0); MCH 31.1 pg (26.0-34.0); MCHC 33.8 g/dL (28.0-37.0); RBC 2.93 mil/uL (4.50-6.00); RDW-CV 13.3 % (10.5-14.5)
[2018-12-21 05:34] LABS: CALCIUM 8.4 mg/dL (8.5-10.1); CREATININE 2.6 mg/dL (0.6-1.3); MAGNESIUM 1.5 mg/dL (1.8-2.4); POTASSIUM 3.4 mmol/L (3.5-5.1)
[2018-12-21 08:00] VITALS: BP 115/80
[2018-12-21 11:52] VITALS: BP 131/89
[2018-12-21 17:26] VITALS: BP 147/105
[2018-12-22] VITALS: BP 133/88
[2018-12-22 04:00] VITALS: BP 139/86
[2018-12-22 05:46] LABS: CALCIUM 8.5 mg/dL (8.5-10.1); CREATININE 2.4 mg/dL (0.6-1.3); POTASSIUM 3.9 mmol/L (3.5-5.1)
[2018-12-22 08:00] VITALS: BP 145/90
[2018-12-22 08:26] VITALS: BP 139/86
[2018-12-22 15:48] VITALS: BP 127/90
[2018-12-22 20:00] VITALS: BP 100/65
[2018-12-22 21:56] LABS: HEMATOCRIT 24.9 % (42.0-52.0); HEMOGLOBIN 8.4 gm/dL (14.0-18.0); MCH 30.9 pg (26.0-34.0); MCHC 33.9 g/dL (28.0-37.0); MCV 91.2 fL (80.0-100.0); MPV 9.2 fl. (7.2-11.1); RBC 2.73 mil/uL (4.50-6.00); RDW-CV 12.8 % (10.5-14.5); WBC 9.1 thou/uL (4.0-11.0)
[2018-12-23 00:45] VITALS: BP 113/73
[2018-12-23 02:02] LABS: HEMATOCRIT 23.2 % (42.0-52.0); HEMOGLOBIN 7.7 gm/dL (14.0-18.0); MCH 30.4 pg (26.0-34.0); MCHC 33.2 g/dL (28.0-37.0); MCV 91.5 fL (80.0-100.0); MPV 9.7 fl. (7.2-11.1); RBC 2.54 mil/uL (4.50-6.00); WBC 11.3 thou/uL (4.0-11.0)
[2018-12-23 04:44] VITALS: BP 109/70
[2018-12-23 07:18] LABS: HEMATOCRIT 22.5 % (42.0-52.0); HEMOGLOBIN 7.5 gm/dL (14.0-18.0); MCH 30.5 pg (26.0-34.0); MCHC 33.1 g/dL (28.0-37.0); MCV 92.1 fL (80.0-100.0); MPV 9.5 fl. (7.2-11.1); RBC 2.45 mil/uL (4.50-6.00); RDW-CV 12.9 % (10.5-14.5); WBC 9.4 thou/uL (4.0-11.0)
[2018-12-23 07:43] LABS: CALCIUM 8.5 mg/dL (8.5-10.1); CREATININE 2.2 mg/dL (0.6-1.3); POTASSIUM 4.1 mmol/L (3.5-5.1)
[2018-12-23 07:45] VITALS: BP 121/77
[2018-12-23 16:00] VITALS: BP 104/73
[2018-12-23 21:21] VITALS: BP 110/71
[2018-12-24 03:51] LABS: HEMATOCRIT 20.9 % (42.0-52.0); HEMOGLOBIN 7.1 gm/dL (14.0-18.0); MCH 30.8 pg (26.0-34.0); MCHC 33.7 g/dL (28.0-37.0); MCV 91.5 fL (80.0-100.0); MPV 9.6 fl. (7.2-11.1); RBC 2.29 mil/uL (4.50-6.00); RDW-CV 13.2 % (10.5-14.5); WBC 8.1 thou/uL (4.0-11.0)
[2018-12-24 04:09] LABS: ALBUMIN 2.7 g/dL (3.4-5.0); CALCIUM 8.6 mg/dL (8.5-10.1); CREATININE 2.2 mg/dL (0.6-1.3); POTASSIUM 4.2 mmol/L (3.5-5.1); TOTAL BILIRUBIN 0.4 mg/dL (<0.1-1.0); TOTAL PROTEIN 6.8 g/dL (6.4-8.2)
[2018-12-24 08:29] VITALS: BP 125/86
[2018-12-24 16:00] VITALS: BP 122/78
[2018-12-24 21:00] VITALS: BP 136/82
[2018-12-25 08:00] VITALS: BP 125/66
[2018-12-25 15:57] VITALS: BP 103/75
[2018-12-25 19:30] VITALS: BP 120/70
[2018-12-25 23:53] VITALS: BP 130/89
[2018-12-26 04:53] LABS: ABSOLUTE EOSINOPHILS 0.2 thou/uL (0.0-0.7); ABSOLUTE LYMPHOCYTES 1.6 thou/uL (0.8-5.3); ABSOLUTE MONOCYTES 0.6 thou/uL (0.0-1.2); ABSOLUTE NEUTROPHILS 4.8 thou/uL (1.6-8.1); BASOPHILS 0.6 %; EOSINOPHILS 2.4 %; LYMPHOCYTES 21.9 %; MCHC 32.9 g/dL (28.0-37.0); MCV 91.1 fL (80.0-100.0); MONOCYTES 8.8 %; MPV 10.1 fl. (7.2-11.1); NUCLEATED RBCS 0 /100WBC; PLATELET COUNT* 221 thou/uL (150-400); POLYS 66.3 %; RBC 2.12 mil/uL (4.50-6.00); RDW-CV 13.4 % (10.5-14.5); WBC 7.3 thou/uL (4.0-11.0)
[2018-12-26 05:20] LABS: ALBUMIN 2.6 g/dL (3.4-5.0); CALCIUM 8.4 mg/dL (8.5-10.1); CREATININE 1.6 mg/dL (0.6-1.3); POTASSIUM 3.4 mmol/L (3.5-5.1); TOTAL BILIRUBIN 0.3 mg/dL (<0.1-1.0); TOTAL PROTEIN 6.9 g/dL (6.4-8.2)
[2018-12-26 06:15] LABS: HEMATOCRIT 19.3 % (42.0-52.0); HEMOGLOBIN 6.4 gm/dL (14.0-18.0)
[2018-12-26 07:30] VITALS: BP 139/88
[2018-12-26 09:45] VITALS: BP 117/86; BP 125/86; BP 136/84; BP 139/93
[2018-12-26 15:56] VITALS: BP 119/82
[2018-12-26 20:30] VITALS: BP 136/91
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
[2018-12-27 05:22] LABS: HEMATOCRIT 22.8 % (42.0-52.0); HEMOGLOBIN 7.7 gm/dL (14.0-18.0); MCH 30.6 pg (26.0-34.0); MCHC 33.9 g/dL (28.0-37.0); MCV 90.3 fL (80.0-100.0); MPV 10.3 fl. (7.2-11.1); RBC 2.53 mil/uL (4.50-6.00); RDW-CV 13.5 % (10.5-14.5); WBC 7.4 thou/uL (4.0-11.0)
[2018-12-27 05:39] LABS: CALCIUM 8.5 mg/dL (8.5-10.1); CREATININE 1.4 mg/dL (0.6-1.3); POTASSIUM 3.4 mmol/L (3.5-5.1)
[2018-12-27 07:40] VITALS: BP 117/80
[2018-12-27 15:27] VITALS: BP 139/87
[2018-12-27 20:00] VITALS: BP 147/95
[2018-12-28 07:40] VITALS: BP 147/90
[2018-12-28 16:00] VITALS: BP 135/83
[2018-12-28 19:30] VITALS: BP 100/67
[2018-12-29 04:00] VITALS: BP 110/66
[2018-12-29 08:00] VITALS: BP 123/80
[2018-12-29 08:50] LABS: ABSOLUTE EOSINOPHILS 0.2 thou/uL (0.0-0.7); ABSOLUTE MONOCYTES 0.9 thou/uL (0.0-1.2); ABSOLUTE NEUTROPHILS 10.7 thou/uL (1.6-8.1); BASOPHILS 0.4 %; EOSINOPHILS 1.4 %; HEMATOCRIT 24.8 % (42.0-52.0); HEMOGLOBIN 8.3 gm/dL (14.0-18.0); LYMPHOCYTES 14.4 %; MCH 30.3 pg (26.0-34.0); MCHC 33.3 g/dL (28.0-37.0); MONOCYTES 6.7 %; NUCLEATED RBCS 0 /100WBC; PLATELET COUNT* 269 thou/uL (150-400); POLYS 77.1 %; RBC 2.73 mil/uL (4.50-6.00); RDW-CV 13.2 % (10.5-14.5); WBC 13.8 thou/uL (4.0-11.0)
[2018-12-29 08:55] LABS: CALCIUM 8.9 mg/dL (8.5-10.1); CREATININE 1.6 mg/dL (0.6-1.3); POTASSIUM 3.1 mmol/L (3.5-5.1)
[2018-12-29 08:57] LABS: APTT 30.6 Seconds (25.0-31.3); INR 1.1; PROTIME 11.1 Seconds (9.20-11.50)
[2018-12-29 08:59] LABS: ALBUMIN 2.8 g/dL (3.4-5.0); MAGNESIUM 1.9 mg/dL (1.8-2.4); PHOSPHORUS* 4.1 mg/dL (2.5-4.9); TOTAL BILIRUBIN 0.3 mg/dL (<0.1-1.0); TOTAL PROTEIN 7.7 g/dL (6.4-8.2)
[2018-12-29 09:33] LABS: URINE BILIRUBIN NEGATIVE (Negative); URINE BLOOD 3+ (Negative); URINE CLARITY SL CLOUDY; URINE COLOR YELLOW; URINE GLUCOSE-RANDOM NEGATIVE (Negative); URINE KETONES NEGATIVE (Negative); URINE PROTEIN 1+ (Negative); URINE UROBILINOGEN 0.2 E.U./dl (0.2-1.0)
[2018-12-29 09:35] LABS: URINE LEUKOCYTES-REFLEX 2+ (Negative); URINE NITRITE-REFLEX POSITIVE (Negative)
[2018-12-29 09:38] LABS: SQUAMOUS 0-3 Few /LPF (0-3); URINE RBC 3-10 Few /HPF (0-2); URINE WBC-REFLEX >25 Many /HPF (0-5)
[2018-12-29 09:39] LABS: CASTS None Seen /LPF (None Seen); CRYSTALS None Seen /LPF (None Seen); MUCUS 0-3 Light strn/LPF (None Seen)
[2018-12-29 15:15] VITALS: BP 97/61
[2018-12-29 16:25] VITALS: BP 112/67
[2018-12-29 19:40] VITALS: BP 122/81
[2018-12-30] VITALS: BP 106/69
[2018-12-30 07:50] VITALS: BP 113/77
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
[2018-12-30 20:00] VITALS: BP 122/84
[2018-12-31 03:53] LABS: HEMATOCRIT 22.9 % (42.0-52.0); HEMOGLOBIN 7.7 gm/dL (14.0-18.0); MCH 30.4 pg (26.0-34.0); MCHC 33.4 g/dL (28.0-37.0); MCV 90.9 fL (80.0-100.0); MPV 10.4 fl. (7.2-11.1); RBC 2.52 mil/uL (4.50-6.00); RDW-CV 12.8 % (10.5-14.5); WBC 7.7 thou/uL (4.0-11.0)
[2018-12-31 04:01] LABS: CALCIUM 8.5 mg/dL (8.5-10.1); CREATININE 1.1 mg/dL (0.6-1.3); POTASSIUM 3.5 mmol/L (3.5-5.1)
[2018-12-31 07:40] VITALS: BP 125/82
[2018-12-31 20:00] VITALS: BP 132/92
--- NOTE | 2019-01-01 06:46 | CON ---
[address] [address] CONSULTATION Name: ZACH MORTON Room: [address] IN ..#: [id number] Admission: 12/03/18 Attend Phys: Kareem Holt MD Discharge: Date of : 70 Report #: [id number] THIS REPORT FOR: //name// CC: Michael Mcwilliams DATE OF SERVICE: 12/03/2018 REASON FOR CONSULTATION: Consultation is obtained by Dr. Mcwilliams for acute kidney injury and profound metabolic acidosis. HISTORY OF PRESENT ILLNESS: The patient is a 47-year-old gentleman who was admitted this morning. He was brought in by the EMS. His girlfriend reports that he reported some shortness of breath early in the morning. He took a shower and then went back to bed. The next thing she noticed he was gurgling with secretions in his throat and gasping for breath. He was unarousable at that time, she started CPR and called the EMS. The EMS arrived in around 20 minutes according to the family. Multiple rounds of CPR were continued since that time. Since the patient has been in the ER, a diagnosis of acute coronary syndrome was made. The patient was taken to the [facility] and had a right coronary intervention with stenting. The patient is intubated and sedated. He received around 2 liters of normal saline bolus since morning. He had a Andrew placed with 100 mL of urine, but none since that time. His blood pressure dropped but then subsequently stabilized and is only on 1 pressor at this time. His lungs sounds are extremely coarse. He is fighting the vent. His oxygen saturations are preserved with 100% FiO2. There is apparently history of drug abuse with methamphetamine use. Details of that are not readily available. His girlfriend was not really aware of active use at this time. PAST MEDICAL HISTORY: Hypertension and questionable history of coronary artery disease, history of drug abuse. PERSONAL, SOCIAL AND FAMILY HISTORY: He lives with his girlfriend. Drug abuse as mentioned above. REVIEW OF SYSTEMS: Unobtainable from the patient, but according to the girlfriend, the patient really was not reporting any significant illness until a day ago or so. The nurses tell me the patient is having blood stained stools and also bloody secretions are being aspirated from the ET tube. PHYSICAL EXAMINATION: VITAL SIGNS: The patient is intubated and sedated. He is on 100% FiO2. He is on 1 pressor. Blood pressure is in the low 90s to 100s. LUNGS: Markedly coarse bilaterally. ABDOMEN: Soft, nontender. EXTREMITIES: There is no [place] [address] CONSULTATION Name: ZACH MORTON Room: [address] IN ..#: [id number] Admission: 12/03/18 Attend Phys: Kareem Holt MD Discharge: Date of : 70 Report #: [id number] NECK: Veins are flat. HEENT: Mucous membranes are dry and crusted. The patient seems to be fighting the vent and adjustments are being made. LABORATORY DATA: Reviewed. On admission, his ABG was pH of 6.957, pCO2 of 52, pO2 of 49, bicarbonate of 11. Subsequent after resuscitation, pH of 7.1, pCO2 of 61, pO2 of 70 and bicarb of 16. Admission white count 7.5, hemoglobin 13.9, platelets are 114,000. Metabolic panel: Sodium 142, potassium 3.1, chloride 102, bicarbonate 19, BUN is 13, creatinine 1.4, calcium 8.7, magnesium 2.8. AST 147, ALT 181. Albumin 2.7, lipase 482. IMAGING STUDIES: Chest x-ray was also reviewed, it shows extensive right lung infiltrate and moderate perihilar left lung infiltrate. CT of the head was negative for any acute cardiopulmonary process. ASSESSMENT: 1. Anuric acute kidney injury. 2. Respiratory failure secondary to acute coronary syndrome, possible pulmonary edema versus severe aspiration. 3. Hemodynamic collapse. 4. Altered mental status secondary to above-mentioned problems. 5. Acute coronary syndrome, status post right coronary stenting. 6. Profound respiratory and metabolic acidosis secondary to hypoventilation and tissue hypoperfusion injury. PLAN: 1. The patient is critically sick. 2. He has anuric acute kidney injury secondary to the severe hemodynamic collapse from the acute coronary syndrome, cardiac arrest, severe respiratory failure requiring significant oxygen and administration of contrast for the acute coronary syndrome and coronary stenting. 3. This patient will need dialysis. 4. I have requested a dialysis line to be placed. 5. We will monitor the patient closely and decide if he needs dialysis tonight or first thing in the morning. 6. His respiratory status is very tenuous. This does not seem to be secondary to fluid overload, rather seems to be from aspiration and secretions. Hemorrhagic secretions have been noticed and could be from the anticoagulation, which has been induced after the PCI as well as significant lung injury from extensive CPR and possibly aspiration. 7. Hypokalemia, replacement ordered. 8. Profound anion gap metabolic acidosis and respiratory acidosis. Vent settings are being adjusted. I gave the patient 2 amps of bicarbonate and initially put him on sodium bicarbonate infusion. However, considering his respiratory status, I had to back off. For now, we will watch him closely over the next couple of hours. Hopefully with better respiratory toilet and [facility] [address] [place] [address] CONSULTATION Name: ZACH MORTON Room: [address] IN [facility]#: [id number] Admission: 12/03/18 Attend Phys: Kareem Holt MD Discharge: Date of : 70 Report #: [id number] ventilation, he will settle down. Surprisingly for what he is going through, his blood pressure is relatively stable. 9. The whole situation was explained to the patient's mother and girlfriend in detail. Overall prognosis for recovery remains guarded. There is very high risk of multiorgan failure and anoxic brain injury. We will follow along closely. Next set of labs to be drawn in 6-8 hours and the need for dialysis to be decided based on that. Thank you for the consultation. <ELECTRONICALLY SIGNED> By: Sera Ye MD 01/01/19 0646 1730 1834Sera Ye MD /nt
[2019-01-01 08:00] VITALS: BP 129/92
[2019-01-01 19:30] VITALS: BP 120/74
[2019-01-02 08:00] VITALS: BP 140/84
[2019-01-02 10:26] LABS: ABSOLUTE EOSINOPHILS 0.2 thou/uL (0.0-0.7); ABSOLUTE LYMPHOCYTES 1.9 thou/uL (0.8-5.3); ABSOLUTE MONOCYTES 0.7 thou/uL (0.0-1.2); ABSOLUTE NEUTROPHILS 4.9 thou/uL (1.6-8.1); BASOPHILS 0.6 %; EOSINOPHILS 2.9 %; HEMATOCRIT 24.1 % (42.0-52.0); HEMOGLOBIN 8.4 gm/dL (14.0-18.0); LYMPHOCYTES 24.9 %; MCH 31.4 pg (26.0-34.0); MCHC 34.7 g/dL (28.0-37.0); MCV 90.5 fL (80.0-100.0); MPV 10.7 fl. (7.2-11.1); NUCLEATED RBCS 0 /100WBC; PLATELET COUNT* 263 thou/uL (150-400); POLYS 62.6 %; RBC 2.66 mil/uL (4.50-6.00); RDW-CV 13.2 % (10.5-14.5); WBC 7.8 thou/uL (4.0-11.0)
[2019-01-02 10:55] LABS: ALBUMIN 2.9 g/dL (3.4-5.0); CALCIUM 8.6 mg/dL (8.5-10.1); CREATININE 1.1 mg/dL (0.6-1.3); POTASSIUM 3.8 mmol/L (3.5-5.1); TOTAL BILIRUBIN 0.3 mg/dL (<0.1-1.0); TOTAL PROTEIN 6.7 g/dL (6.4-8.2)
[2019-01-02 11:30] VITALS: BP 96/76
[2019-01-02 16:25] VITALS: BP 110/73
[2019-01-02 21:30] VITALS: BP 120/70
[2019-01-03 07:15] VITALS: BP 99/64
[2019-01-03] MEDS ORDERED: DEPAKOTE500 MG PO (07:22)
[2019-01-03] MEDS ORDERED: LOPRESSOR25 PO (07:22)
[2019-01-03] MEDS ORDERED: LIPITOR40 MG PO (07:22)
[2019-01-03] MEDS ORDERED: HYDROXYZINE HCL10 M2 PERTUBE (07:22)
[2019-01-03] MEDS ORDERED: NEXIUM40 MG PO (07:22)
[2019-01-03] MEDS ORDERED: EFFIENT10 MG PO (07:22)
[2019-01-03] MEDS ORDERED: RISPERIDONE 1 MG1 MG PO (07:22)
--- NOTE | 2019-01-03 11:39 | EKG ---
[place] [address] ELECTROCARDIOGRAM REPORT Name: ZACH MORTON Room: [address] ADM IN [facility]#: [id number] Admission: 12/03/18 Attend Phys: Kareem Holt MD Discharge: Date of : 70 Report #: [id number] THIS REPORT FOR: //name// [facility] Test Date: 2019-01-02 Test Time: 11:39:19 Pat Name: ZACH MORTON Department: Room: [address] Gender: M [employer]iding In[employer]: [birth year] Requested By: Kareem Holt Order Number: [id number] Reading MD: Eliseo Vega Measurements Intervals [place] Rate: 76 P: 34 ND: 143 QRS: -23 QRSD: 95 T: -27 QT: 427 QTc: 481 Interpretive Statements Sinus rhythm Inferior infarct, age indeterminate Compared to ECG 12/12/2018 09:35:27 No significant changes Electronically Signed On 01-03-2019 11:39:06 [employer] by Eliseo Vega [email or web address] <ELECTRONICALLY SIGNED> By: Eliseo Vega MD, [facility] 01/03/19 1139 1139 113 Eliseo Vega MD, FACC /EPI
[2019-01-03 16:00] VITALS: BP 114/76
[2019-01-03 20:30] VITALS: BP 125/76
[2019-01-04 07:10] VITALS: BP 124/91
[2019-01-04 18:50] LABS: URINE BILIRUBIN NEGATIVE (Negative); URINE BLOOD NEGATIVE (Negative); URINE CLARITY CLEAR; URINE COLOR YELLOW; URINE GLUCOSE-RANDOM NEGATIVE (Negative); URINE KETONES NEGATIVE (Negative); URINE LEUKOCYTES-REFLEX NEGATIVE (Negative); URINE NITRITE-REFLEX NEGATIVE (Negative); URINE PROTEIN NEGATIVE (Negative); URINE UROBILINOGEN 0.2 E.U./dl (0.2-1.0)
[2019-01-04 20:20] VITALS: BP 131/72
[2019-01-05 09:00] VITALS: BP 129/84
[2019-01-05 16:21] VITALS: BP 135/93
[2019-01-05 20:47] VITALS: BP 122/88
[2019-01-06 08:15] VITALS: BP 114/69
[2019-01-06 21:20] VITALS: BP 125/93
[2019-01-07 07:20] VITALS: BP 115/72
[2019-01-07 17:08] VITALS: BP 118/79
[2019-01-07 21:10] VITALS: BP 124/85
[2019-01-08 09:10] VITALS: BP 100/64
[2019-01-08 16:30] VITALS: BP 104/63
[2019-01-08 22:15] VITALS: BP 129/81
[2019-01-09 07:30] VITALS: BP 143/86
[2019-01-09 21:30] VITALS: BP 135/89
[2019-01-10 07:40] VITALS: BP 126/85
[2019-01-10] MEDS ORDERED: SUPER THERAVIT1 EACH PER TUBE (11:04)
[2019-01-10] MEDS ORDERED: MELATONIN10 M3 PO (11:05)
[2019-01-10] MEDS ORDERED: SIMETHICONE1 ML PER TUBE (11:06)
[2019-01-10] MEDS ORDERED: MAGOX 400400 MG PO (11:07)
[2019-01-10] MEDS ORDERED: BISACODYL10 MG RECTAL (11:08)
[2019-01-10] MEDS ORDERED: PAIN & FEVER325 MG RECTAL (11:10)
[2019-01-10 12:20] VITALS: BP 126/85
[2019-01-10] MEDS ORDERED: CIPRO500 M1 PO (12:27)
[2019-01-10] MEDS ORDERED: TRAMADOL 50 MG50 MG PO (12:57)
== END 2019-01-10 15:07 | DRG 853 ==
LOC: M.ERS 08:04 → M.CL 08:04 → M.TBA-CV 09:05 → M.ICU 09:05 → M.2W 12-17 20:53 → M.3W 12-22 11:27 → M.ORTHSURG 12-31 17:13
PROVIDERS: Emergency Medicine Emergency Medical Services; Family Medicine; Internal Medicine; Internal Medicine Cardiovascular Disease; Internal Medicine Critical Care Medicine; Internal Medicine Gastroenterology; Internal Medicine Nephrology; Internal Medicine Pulmonary Disease; Registered Nurse; Specialist; ADMIT Internal Medicine
PROC: 5A1955Z Respiratory Ventilation, Greater than 96 Consecutive Hours (ICD-10-PCS; principal; 2018-12-03)
PROC: 02H633Z Insertion of Infusion Device into Right Atrium, Percutaneous Approach (ICD-10-PCS; principal; 2018-12-03)
PROC: B211YZZ Fluoroscopy of Multiple Coronary Arteries using Other Contrast (ICD-10-PCS; principal; 2018-12-03)
PROC: 0BH17EZ Insertion of Endotracheal Airway into Trachea, Via Natural or Artificial Opening (ICD-10-PCS; principal; 2018-12-03)
PROC: 027034Z Dilation of Coronary Artery, One Artery with Drug-eluting Intraluminal Device, Percutaneous Approach (ICD-10-PCS; principal; 2018-12-03)
PROC: 4A023N7 Measurement of Cardiac Sampling and Pressure, Left Heart, Percutaneous Approach (ICD-10-PCS; principal; 2018-12-03)
PROC: 5A1D90Z Performance of Urinary Filtration, Continuous, Greater than 18 hours Per Day (ICD-10-PCS; 2018-12-04)
PROC: 02HV33Z Insertion of Infusion Device into Superior Vena Cava, Percutaneous Approach (ICD-10-PCS; 2018-12-05)
PROC: 02PYX3Z Removal of Infusion Device from Great Vessel, External Approach (ICD-10-PCS; 2018-12-05)
PROC: 0DJ08ZZ Inspection of Upper Intestinal Tract, Via Natural or Artificial Opening Endoscopic (ICD-10-PCS; 2018-12-07)
PROC: 30233N1 Transfusion of Nonautologous Red Blood Cells into Peripheral Vein, Percutaneous Approach (ICD-10-PCS; 2018-12-08)
PROC: 0DH63UZ Insertion of Feeding Device into Stomach, Percutaneous Approach (ICD-10-PCS; 2018-12-22)
DX: A41.9 Sepsis, unspecified organism (principal); J96.01 Acute respiratory failure with hypoxia; I46.9 Cardiac arrest, cause unspecified; E11.10 Type 2 diabetes mellitus with ketoacidosis without coma; K72.00 Acute and subacute hepatic failure without coma; N17.0 Acute kidney failure with tubular necrosis; J69.0 Pneumonitis due to inhalation of food and vomit; I21.19 ST elevation (STEMI) myocardial infarction involving other coronary artery of inferior wall; K29.71 Gastritis, unspecified, with bleeding; G93.1 Anoxic brain damage, not elsewhere classified; N39.0 Urinary tract infection, site not specified; E87.0 Hyperosmolality and hypernatremia; E44.0 Moderate protein-calorie malnutrition; I24.9 Acute ischemic heart disease, unspecified; B96.89 Other specified bacterial agents as the cause of diseases classified elsewhere; F39 Unspecified mood [affective] disorder; D64.9 Anemia, unspecified; K75.89 Other specified inflammatory liver diseases; N18.9 Chronic kidney disease, unspecified; E83.42 Hypomagnesemia; E87.6 Hypokalemia; K21.0 Gastro-esophageal reflux disease with esophagitis; I25.10 Atherosclerotic heart disease of native coronary artery without angina pectoris; D69.6 Thrombocytopenia, unspecified; Z68.24 Body mass index [BMI] 24.0-24.9, adult; E11.22 Type 2 diabetes mellitus with diabetic chronic kidney disease; Z79.899 Other long term (current) drug therapy